=== PATIENT | female | born 1980 | race Caucasian/White ===

== ENCOUNTER 2020-03-21 09:33 | Outpatient (CLI) | payer BC ==
[2020-03-21 10:18] LABS: CREATININE 0.8 mg/dL (0.6-1.3)
[2020-03-21] MEDS ORDERED: GADOTERIDOL 279.3 MG/ML VIAL IV ONE (13:50)
== END 2020-03-21 23:59 | disposition home or self-care (01) ==
LOC: MRI 09:33
DX: J32.8 Other chronic sinusitis (principal)
CPT/HCPCS: 36415; 70553; 72157; 82565; 84520; A9579